=== PATIENT | female | born 2000 | race Hispanic/Latino ===

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

== ENCOUNTER 2021-01-30 01:11 | Emergency (ER) | payer OTHER | END 2021-01-30 02:25 | disposition home or self-care (01) | LOC: ERS 01:11 | DX: J06.9 Acute upper respiratory infection, unspecified (principal); G40.909 Epilepsy, unspecified, not intractable, without status epilepticus; Z79.899 Other long term (current) drug therapy | CPT/HCPCS: 99283 ==

== ENCOUNTER 2024-02-27 13:20 | Emergency (ER) | payer OTHER ==
[2024-02-27] MEDS ORDERED: levETIRAcetam 500 MG (5 mL) VIAL ONE (13:58)
[2024-02-27 14:01] LABS: BHCG - Serum Negative (NEGATIVE); Pregs Control Background? CLEAR/WHITE (CLR/WHITE); Pregs Control Bar Appear? YES (CONTROL BAR)
[2024-02-27 14:07] LABS: #Basophils 0.04 10x3/uL (0.0-0.2); %Basophils 0.4 % (0.0-1.0); Hemoglobin 13.9 g/dL (12.0-16.0); Mean Corpuscular Hemoglobin 31.7 pg (27.0-31.0); RBC Distribution Width 12.5 % (11.5-14.5); Red Blood Cell (RBC) Count 4.38 mill/uL (4.20-5.40)
[2024-02-27 14:19] LABS: #Eosinphils Less than 0.03 10x3/uL (0.0-0.7); %Eosinophils 0.2 % (0.0-10.0); %Lymphocytes 21.2 % (21.0-51.0); %Monocytes 4.5 % (0.0-10.0); %Neutrophils 73.5 % (42.0-75.0); Mean Corpuscular HGB CONC 33.9 g/dL (32.0-36.0); Mean Corpuscular Volume 93.6 fL (78.0-98.0); Platelet Count 273 10x3/uL (130-400)
[2024-02-27 14:27] LABS: ALT (SGPT) 49 U/L (8-55); AST (SGOT) 37 U/L (5-34); Albumin 4.3 g/dL (3.5-5.0); Alkaline Phosphatase 70 U/L (40-110); Anion Gap 18 mmol/L (10-20); BUN (Urea Nitrogen) 13 mg/dL (7.0-18.7); Bilirubin, Total 0.7 mg/dL (0.2-1.2); Calc. Creatinine Clearance 0 mL/min (70-130); Calcium 9.5 mg/dL (7.8-10.44); Carbon Dioxide 18 mmol/L (22-29); Chloride 105 mmol/L (98-107); Estimated GFR 123; Globulin 4.2 g/dL (2.4-3.5); Glucose 137 mg/dL (70-105); Potassium 4.7 mmol/L (3.5-5.1); Protein, Total 8.5 g/dL (6.0-8.3); Sodium 136 mmol/L (136-145)
== END 2024-02-27 18:05 | disposition home or self-care (01) ==
LOC: ERS 13:20
DX: G40.409 Other generalized epilepsy and epileptic syndromes, not intractable, without status epilepticus (principal)
CPT/HCPCS: 36415; 80053; 80164; 80177; 83605; 84146; 84703; 85025; 93005; 96374; J1953

== ENCOUNTER 2024-06-24 01:47 | Emergency (ER) | payer OTHER ==
[2024-06-24] MEDS ORDERED: Ibuprofen 800 MG TAB ONE (02:37)
[2024-06-24] MEDS ORDERED: Metoclopramide HCl 10 MG TAB ONE (02:40)
== END 2024-06-24 03:10 | disposition home or self-care (01) ==
LOC: ERS 01:47
DX: R51.9 Headache, unspecified (principal)
CPT/HCPCS: 99283